=== PATIENT | female | born 1975 | race Two or more races ===

== ENCOUNTER 2016-08-08 17:09 | Emergency (ER) | payer OTHER ==
[2016-08-08 17:25] VITALS: BP 119/77; PULSE 62; RESP 16; TEMP 98.6; O2SAT 97
[2016-08-08] MEDS ORDERED: LET GEL TOPICAL 1 EA SYR TP ONE (17:38)
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
[2016-08-08] MEDS ORDERED: SKIN ADHESIVE (DERMABOND) 1 EACH TP ONE (18:17)
== END 2016-08-08 18:53 | disposition home or self-care (01) ==
LOC: CED 17:09
PROC: 0HQ1XZZ Repair Face Skin, External Approach (ICD-10-PCS; principal; 2016-08-08)
DX: S06.0X0A Concussion without loss of consciousness, initial encounter (principal); S01.81XA Laceration without foreign body of other part of head, initial encounter; S63.602A Unspecified sprain of left thumb, initial encounter; S80.02XA Contusion of left knee, initial encounter; V10.0XXA Pedal cycle driver injured in collision with pedestrian or animal in nontraffic accident, initial encounter; Y93.55 Activity, bike riding
CPT/HCPCS: 12011-PO; 73140-PO; 99203-PO; G0463-PO; L3807